=== PATIENT | female | born 2000 | race Caucasian/White ===

== ENCOUNTER 2019-08-24 21:31 | Emergency (ER) | payer OTHER ==
[~2019-08-24] VITALS: Ht 154.9 cm; Wt 47.2 kg
[~2019-08-24 21:31] MED LIST: LEVO88TA4 PO
[2019-08-24 22:54] LABS: MICROSCOPIC INDICATED
--- NOTE | 2019-08-24 23:00 | NUR ---
LABS DRAWN. PT RESTING COMFORTABLY ON GURNEY. SEJAL. FRIENDS AT BEDSIDE.
[2019-08-24 23:10] LABS: BASOPHILS # (AUTO) 0.04 x10^3/uL (0-0.1); BASOPHILS % (AUTO) 0 % (0-1); EOSINOPHILS # (AUTO) 0.18 x10^3/uL (0-0.4); EOSINOPHILS % (AUTO) 2 % (1-7); LYMPHOCYTES # (AUTO) 2.16 x10^3/uL (1-3.4); LYMPHOCYTES % (AUTO) 18 % (22-44); MD NO; MEAN CORPUSCULAR HEMOGLOBIN 31.9 pg (27.0-34.8); MEAN CORPUSCULAR HGB CONC 33.7 g/dL (32.4-35.8); MEAN CORPUSCULAR VOLUME 94.7 fL (80-100); MONOCYTES # (AUTO) 0.84 x10^3/uL (0.2-0.8); MONOCYTES % (AUTO) 7 % (2-9); NEUTROPHILS # (AUTO) 8.75 x10^3/uL (1.8-6.8); NEUTROPHILS % (AUTO) 73 % (42-75); PLATELET COUNT 289 x10^3/uL (130-400); RED BLOOD COUNT 4.81 x10^6/uL (3.82-5.3); RED CELL DISTRIBUTION WIDTH 13.2 % (9.6-15.2)
[2019-08-24 23:12] LABS: CULTURE INDICATED? NO
[2019-08-24 23:17] LABS: HCG UR SG 1.023 (1.003-1.030)
[2019-08-24 23:19] LABS: ALANINE AMINOTRANSFERASE 13 U/L (12-78); ANION GAP 7 mmol/L (5-15); CALCIUM 9.3 mg/dL (8.5-10.1); CHLORIDE 106 mmol/L (98-107); CREATININE 0.97 mg/dL (0.55-1.02)
[2019-08-24 23:21] LABS: ALKALINE PHOSPHATASE 40 U/L (45-117); BILIRUBIN,TOTAL 0.4 mg/dL (0.2-1.0); TOTAL PROTEIN 7.6 g/dL (6.4-8.2)
--- NOTE | 2019-08-24 23:40 | NUR ---
PT GOING TO US.
[2019-08-25 00:03] VITALS: BP 112/62
--- NOTE | 2019-08-25 00:03 | NUR ---
ASSUMED CARE OF PATIENT AT THIS TIME. VITALS UPDATED. PT AND FRIENDS DENY CURRENT NEEDS. CALL LIGHT ON LAP.
== END 2019-08-25 01:07 | disposition home or self-care (01) ==
LOC: ED 23:02
DX: N92.1 Excessive and frequent menstruation with irregular cycle (principal)
CPT/HCPCS: 36415; 76830; 80053; 81001; 81025; 85025; 93005; 99284